=== PATIENT | female | born 1995 | race Caucasian/White ===

== ENCOUNTER 2017-06-06 10:46 | Emergency (ER) | payer BC ==
[~2017-06-06] VITALS: Ht 160 cm; Wt 86.5 kg
[~2017-06-06 10:46] MED LIST: IBUPROFEN800 MG PO; Motrin PO
[2017-06-06 11:31] LABS: HEMATOCRIT 39.8 % (36.0-46.0); MCH 29.5 PG (29.0-34.0); MCHC 33.7 G/DL (30.0-36.0); MCV 87.5 FL (83-99); MEAN PLAT.VOLUME 10.5 uM^3 (9.5-12.4); PLATELET COUNT 190 K/uL (156-360); RBC DIS.WIDTH-CV 13.8 % (11.8-14.6); RBC DIS.WIDTH-SD 43.8 % (39-53); RED BLOOD COUNT 4.55 M/uL (3.80-5.20); WHITE BLOOD COUNT 6.3 K/uL (4.1-10.2)
[2017-06-06 11:34] LABS: ADD MIUA? YES; BILIRUBIN NEGATIVE; BLOOD NEGATIVE; COLOR YELLOW ((YELLOW)); GLUCOSE (STRIP) NEGATIVE; KETONES NEGATIVE; LEUKOCYTES TRACE; NITRITE NEGATIVE; PROTEIN (STRIP) NEGATIVE; SPECIFIC GRAVITY 1.017 (1.000-1.030); UROBILINOGEN 0.2 MG/DL (0.2-1.0)
[2017-06-06 11:36] LABS: BACTERIA RARE /HPF; EPITHELIAL CELLS 2+ /HPF; MUCUS TRACE /LPF; RED BLOOD CELLS NONE SEEN /HPF (0-5); WHITE BLOOD CELLS 0-5 /HPF (0-5)
[2017-06-06 11:44] LABS: CHLORIDE 106 mEq/L (99-109); POTASSIUM 3.6 mEq/L (3.7-5.4); SODIUM 140 mEq/L (136-147)
[2017-06-06 11:46] LABS: GLUCOSE 105 mg/dL (70-99)
[2017-06-06 11:48] LABS: ANION GAP 9 MEQ/L (2-14); TOTAL BILIRUBIN 0.7 mg/dL (0.0-1.0)
[2017-06-06 11:50] LABS: ALKALINE PHOSPHATASE 156 IU/L (3-129); GFR ESTIMATE (CALCULATED) > 59 mL/min/
[2017-06-06 11:51] LABS: UREA NITROGEN (BUN) 6 mg/dL (9-23)
[2017-06-06 11:53] LABS: LIPASE 46 U/L (1.0-51.0)
[2017-06-06 12:00] LABS: QUANTITATIVE HCG < 4.0 MIU/ML
[2017-06-06] MEDS ORDERED: CITRATE OF MAG296 ML PO (14:40)
[2017-06-06 15:33] VITALS: BP 118/73
== END 2017-06-06 15:34 | disposition home or self-care (01) ==
LOC: EME 10:46
PROVIDERS: Physician Assistant
DX: R10.12 Left upper quadrant pain (principal); F17.200 Nicotine dependence, unspecified, uncomplicated
CPT/HCPCS: 76705; 80053; 81003; 83690; 84702; 85027; 99281; 99284